=== PATIENT | male | born 1950 | race Caucasian/White ===

== ENCOUNTER 2018-11-01 14:53 | Emergency (ER) | payer BC, OTHER ==
--- NOTE | 2018-11-01 15:01 | EDM.PDOC ---
ED HPI GENERAL MEDICAL PROBLEM - General Stated Complaint: NOSE BLEED Time Seen by Provider: 11/01/18 14:53 Source of Information: Reports: Patient History Limitations: Reports: No Limitations - History of Present Illness INITIAL COMMENTS - FREE TEXT/NARRATIVE: 68 y.o.w.m came by taxi to the ed due to sudden onset of right sided nose bleed. cause was not mechanical. Pt took some antihistamines after which the bleeding started. Pt denies HNT, denies trauma denies any prev nose bleed. Pt is not on Aspirin nor Coumadin. No N/V/D no Dizziness or any other acute medical issues. BP 161/91 RR 18 Pulse ox 98% on RA temp 36.8 Pulse 96 Onset Date: 11/01/18 Onset Time: 14:15 Duration: Minutes:, Getting Worse, Intermittent Location: Reports: Face Severity: Moderate Improves with: Reports: Cold Therapy, Rest Worsens with: Reports: Movement Context: Reports: Sick Contact - Related Data Allergies Allergy/AdvReac Type Severity Reaction Status Date / Time No Known Allergies Allergy Verified 11/01/18 16:16 Home Meds: Home Meds Multivitamin [Daily Multiple Vitamin] 1 tab PO DAILY 12/28/14 [History] Naproxen Sodium [Aleve] 220 mg PO BID PRN 12/28/14 [History] Amoxicillin/Potassium Clav [Augmentin 875-125 Tablet] 1 each PO BID #20 tablet 11/01/18 [Rx] Tamsulosin HCl [Flomax] 0.4 mg PO DAILY 11/01/18 [History] Past Medical History - Past Health History Medical/Surgical History: Denies Medical/Surgical History ED ROS ENT - Review of Systems Review Of Systems: See Below Constitutional: Reports: No Symptoms HEENT: Reports: Nosebleed, Rhinitis Respiratory: Reports: No Symptoms Cardiovascular: Reports: No Symptoms Endocrine: Reports: No Symptoms GI/Abdominal: Reports: No Symptoms : Reports: No Symptoms Musculoskeletal: Reports: No Symptoms Skin: Reports: No Symptoms Neurological: Reports: No Symptoms Psychiatric: Reports: No Symptoms Hematologic/Lymphatic: Reports: No Symptoms Immunologic: Reports: No Symptoms ED EXAM, ENT - Physical Exam Exam: See Below Exam Limited By: No Limitations General Appearance: Alert, WD/WN, Mild Distress Eye Exam: Bilateral Eye: Normal Inspection Ears: Normal External Exam Nose: Active Bleeding Mouth/Throat: Normal Inspection, Normal Gums, Normal Lips, Normal Oropharynx Head: Atraumatic, Normocephalic Neck: Normal Inspection, Supple, Non-Tender, Full Range of Motion Respiratory/Chest: No Respiratory Distress, Lungs Clear, Normal Breath Sounds, No Accessory Muscle Use, Chest Non-Tender Cardiovascular: Normal Peripheral Pulses, Regular Rate, Rhythm, No Edema, No Gallop, No JVD GI/Abdominal: Normal Bowel Sounds, Soft, Non-Tender, No Organomegaly, No Abnormal Bruit, No Mass, Pelvis Stable (Male) Exam: Deferred Rectal (Males) Exam: Deferred Back: Normal Inspection, Full Range of Motion Extremities: Normal Inspection, Normal Range of Motion, Non-Tender, No Pedal Edema, Normal Capillary Refill Neurological: Alert, Oriented, CN II-XII Intact, Normal Cognition, Normal Gait, Normal Reflexes, No Motor/Sensory Deficits Psychiatric: Normal Affect, Normal Mood Skin: Warm, Dry, Intact, Normal Color, No Rash Lymphatic: No Adenopathy ED ENT PROCEDURES - Epistaxis Procedure Recent anticoagulants/antiplatlets: No Uncontrolled HTN: No Recent septal/nasal surgery: No Site of bleeding: Right Nare, Posterior Clearing of clots: Patient Blew Nose Topical Meds: Phenylephrine Ice pack to area: Yes Chemical cautery: Silver Nitrate Topical Electrical cautery: Visible Bleeding, Successful Post cautery: Antibiotic Ointment Complications: No Course - Vital Signs Text/Narrative:: 68 y.o.w.m came by taxi to the ed due to sudden onset of right sided nose bleed. cause was not mechanical. Pt took some antihistamines after which the bleeding started. Pt denies HNT, denies trauma denies any prev nose bleed. Pt is not on Aspirin nor Coumadin. No N/V/D no Dizziness or any other acute medical issues. BP 161/91 RR 18 Pulse ox 98% on RA temp 36.8 Pulse 96 PE: WNWD W M with ant/post nose bleed. Labs: Not indicated Procedure: Please see note above. Impression: Posterior epistaxis, HTN TX: Please see note above, Augmentin,Clonidine Reexam: Improved 100% Please see D/C vital at the nursing notes 4.37 pm Consultation: Dr. Agee, ENT, : If bleeding does not stop , Rapid Rhino is a possibility Plan: D/C with instructions Last Recorded V/S: Last Vital Signs Temp 36.7 C 11/01/18 17:59 Pulse 74 11/01/18 17:59 Resp 18 11/01/18 17:59 BP 169/90 H 11/01/18 17:59 Pulse Ox 99 11/01/18 17:59 - Orders/Labs/Meds Meds: Medications Discontinued Medications Generic Name Dose Route Start Last Admin Trade Name Liza PRN Reason Stop Dose Admin Amoxicillin/Clavulanate Potassium 1 tab 11/01/18 17:00 11/01/18 17:06 Augmentin 875 Mg/125 Mg PO 11/01/18 17:01 1 tab ONETIME ONE Administration Clonidine HCl 0.1 mg 11/01/18 17:12 11/01/18 17:33 Catapres PO 11/01/18 17:13 Not Given ONETIME ONE Clonidine HCl 0.1 mg 11/01/18 17:43 11/01/18 17:46 Catapres PO 11/01/18 17:44 0.1 mg ONETIME ONE Administration Departure - Departure Time of Disposition: 17:01 Disposition: Home, Self-Care 01 Condition: Good Clinical Impression: Epistaxis not due to trauma - Discharge Information Prescriptions: Amoxicillin/Potassium Clav [Augmentin 875-125 Tablet] 1 each PO BID #20 tablet Instructions: Nosebleed, [id number] Referrals: Tammi Hester PA [Primary Care Provider] - Forms: ED Department Discharge Additional Instructions: Please keep your working and sleeping areas moist, take the Abx as recommended, please f/u, come back if your symptoms get worse acutely. Please check your BP daily for next 3 days.
[2018-11-01] MEDS ORDERED: Amoxicillin/Clavulanate K 875-125 MG Tab PO ONE (17:00)
[2018-11-01] MEDS ORDERED: cloNIDine 0.1 MG Tab PO ONE ×2 (17:12→17:43)
[2018-11-01 18:41] VITALS: BP 169/90
== END 2018-11-01 17:59 | disposition home or self-care (01) ==
LOC: FB.ED 14:53
DX: R04.0 Epistaxis (principal); Z79.899 Other long term (current) drug therapy
CPT/HCPCS: 30901; 99283; A9270

== ENCOUNTER 2018-12-05 01:12 | Emergency (ER) | payer BC ==
[2018-12-05 01:55] VITALS: BP 165/97
--- NOTE | 2018-12-05 02:58 | ER ---
DATE SEEN: 12/05/2018 CHIEF COMPLAINT: Head injury. HISTORY OF PRESENT ILLNESS: This is a 68-year-old male who was brought in by ambulance after he fell outside. He slipped on ice while going to the bar, but no loss of consciousness. He had some bleeding from the wound, but is otherwise asymptomatic. PAST MEDICAL HISTORY: BPH. ALLERGIES: Reviewed. MEDICATIONS: Please see Epic. PHYSICAL EXAMINATION: GENERAL: He is a well-nourished male. VITAL SIGNS: His blood pressure is 165/97 and temperature is 98.0. HEAD: Normal size. There is a superficial laceration on the occipital scalp about 3 cm in size, but is intact with no active bleeding. NECK: Stiff, but no tenderness to palpation. EYES: Pupils are equal and reactive to light. NEUROLOGIC: Normal cranial nerves 2 through 12. IMPRESSION: Mild head injury. PLAN: The patient was discharged home. Ibuprofen. Local wound care. Follow up [facility] /[phone] [phone] CHRISTINA/BEATRICE
== END 2018-12-05 01:35 | disposition home or self-care (01) ==
LOC: FB.ED 01:12
DX: S09.90XA Unspecified injury of head, initial encounter (principal); W00.0XXA Fall on same level due to ice and snow, initial encounter
CPT/HCPCS: 99283

== ENCOUNTER 2022-03-21 23:33 | Emergency (ER) | payer OTHER, BC, MEDICARE | END 2022-03-22 00:40 | disposition home or self-care (01) | LOC: FB.ED 23:33 | DX: S01.01XA Laceration without foreign body of scalp, initial encounter (principal); W08.XXXA Fall from other furniture, initial encounter | CPT/HCPCS: 12004; 70450; 72125; 99281; 99283-25 ==

== ENCOUNTER 2022-05-25 01:11 | Emergency (ER) | payer OTHER, BC, MEDICARE ==
[2022-05-25] MEDS: Acetaminophen 500 MG Tab PO ONE (01:59)
[2022-05-25] MEDS: Diphtheria,Pertussis(Acell),Tetanus Vaccine 0.5 ML Syringe IM ONE (02:44)
[2022-05-25 03:35] VITALS: BP 152/86; PULSE 55
== END 2022-05-25 03:30 | disposition home or self-care (01) ==
LOC: FB.ED 01:11
DX: S06.0X0A Concussion without loss of consciousness, initial encounter (principal); S01.01XA Laceration without foreign body of scalp, initial encounter; F10.129 Alcohol abuse with intoxication, unspecified; Z98.1 Arthrodesis status; Z23 Encounter for immunization; W18.30XA Fall on same level, unspecified, initial encounter
CPT/HCPCS: 12004; 70450; 72125; 90471; 90715; 99282; 99284; A9270

== ENCOUNTER 2023-03-25 03:00 | Emergency (ER) | payer OTHER, BC ==
[2023-03-25] MEDS ORDERED: Diphtheria,Pertussis(Acell),Tetanus Vaccine 0.5 ML Syringe IM ONE (03:18)
[2023-03-25 03:29] LABS: BASOPHILS PERCENT AUTO 0.3 % (0.3-3.8); EOSINOPHILS ABSOLUTE AUTO 0.1 x10-3/uL (0.0-0.6); EOSINOPHILS PERCENT AUTO 1.3 % (0.1-6.8); HEMATOCRIT 32.9 % (38.3-50.1); HEMOGLOBIN 11.9 g/dL (12.9-17.7); LYMPHOCYTES ABSOLUTE AUTO 1.1 x10-3/uL (0.5-4.5); LYMPHOCYTES PERCENT AUTO 26.1 % (15.8-45.3); MEAN CORPUSCULAR HEMOGLOBIN 35.9 pg (27.0-33.3); MEAN CORPUSCULAR VOLUME 99.7 fL (80.8-98.7); MONOCYTES ABSOLUTE AUTO 0.5 x10-3/uL (0.0-1.2); MONOCYTES PERCENT AUTO 11.8 % (5.5-15.2); NEUTROPHILS ABSOLUTE AUTO 2.6 x10-3/uL (1.7-6.9); NEUTROPHILS PERCENT AUTO 60.5 % (40.3-71.8); PLATELET COUNT,PLT 299 x10(3)uL (117-477); RED CELL DISTRIBUTION WIDTH 13.1 % (12.4-15.0); WHITE BLOOD CELL COUNT,WBC 4.4 x10-3/uL (3.2-10.1)
[2023-03-25 03:36] LABS: BLOOD UREA NITROGEN,BUN 13 mg/dL (7-18); BUN/CREATININE RATIO 18.6 (9-20); CALCIUM 8.9 mg/dL (8.6-10.2); CARBON DIOXIDE,CO2 26 mmol/L (21-32); CHLORIDE,CL 94 mmol/L (100-110); CREATININE 0.7 mg/dL (0.70-1.30); ESTIMATED GFR 97 mL/min (>60); GLUCOSE RANDOM 119 mg/dL (80-116); POTASSIUM,K 3.5 mmol/L (3.5-5.3); SODIUM,NA 128 mmol/L (135-145)
[2023-03-25] MEDS ORDERED: Morphine 2 MG/ML SYRINGE IM ONE (03:39)
[2023-03-25 03:42] LABS: A/G RATIO 1.1; ALANINE AMINOTRANSFERASE,ALT 25 U/L (12-36); ALBUMIN 3.1 g/dL (3.2-4.6); ALKALINE PHOSPHATASE 91 IU/L (56-112); ASPARTATE AMNIOTRANSFERASE,AST 19 IU/L (5-25); BILIRUBIN TOTAL 0.5 mg/dL (0.1-1.3)
[2023-03-25 03:48] LABS: PROTHROMBIN TIME 10.3 sec (9.0-11.1)
[2023-03-25] MEDS ORDERED: Sodium Chloride 0.9% 1,000 ML IV SCH (04:00)
[2023-03-25 10:13] VITALS: BP 204/108; PULSE 81
== END 2023-03-25 09:51 | disposition home or self-care (01) ==
LOC: FB.ED 03:00
DX: S01.01XA Laceration without foreign body of scalp, initial encounter (principal); W01.198A Fall on same level from slipping, tripping and stumbling with subsequent striking against other object, initial encounter
CPT/HCPCS: 12002; 36415; 70450; 72125; 73030; 80053; 80307; 85025; 85610; 96372; 99284; J2270

== ENCOUNTER 2023-04-26 18:53 | Emergency (ER) | payer OTHER, BC ==
[2023-04-26] MEDS ORDERED: Acetaminophen/HYDROcodone 325-5 MG Tab PO STA (20:02)
[2023-04-26 23:17] VITALS: BP 130/81; PULSE 71
== END 2023-04-26 20:51 | disposition home or self-care (01) ==
LOC: FB.ED 18:53
DX: G89.29 Other chronic pain (principal); M25.511 Pain in right shoulder
CPT/HCPCS: 99283; A9270

== ENCOUNTER 2024-12-04 23:16 | Emergency (ER) | payer BC, OTHER ==
[2024-12-05 01:09] VITALS: BP 148/89; PULSE 75
== END 2024-12-05 01:41 | disposition home or self-care (01) ==
LOC: FB.ED 23:16
DX: S01.01XA Laceration without foreign body of scalp, initial encounter (principal); F10.120 Alcohol abuse with intoxication, uncomplicated; I10 Essential (primary) hypertension; K21.9 Gastro-esophageal reflux disease without esophagitis; Z79.899 Other long term (current) drug therapy; Y90.8 Blood alcohol level of 240 mg/100 ml or more; W01.198A Fall on same level from slipping, tripping and stumbling with subsequent striking against other object, initial encounter
CPT/HCPCS: 12004; 36415; 70450; 80307; 99284

== ENCOUNTER 2025-07-01 21:46 | Emergency (ER) | payer OTHER ==
[2025-07-01 22:26] LABS: BASOPHILS ABSOLUTE AUTO 0.0 x10-3/uL (0.0-0.3); BASOPHILS PERCENT AUTO 0.4 % (0.3-3.8); EOSINOPHILS ABSOLUTE AUTO 0.2 x10-3/uL (0.0-0.6); EOSINOPHILS PERCENT AUTO 4.0 % (0.1-6.8); LYMPHOCYTES ABSOLUTE AUTO 1.9 x10-3/uL (0.5-4.5); LYMPHOCYTES PERCENT AUTO 41.0 % (15.8-45.3); MEAN PLATELET VOLUME 6.7 fL (6.7-11.0); MONOCYTES ABSOLUTE AUTO 0.5 x10-3/uL (0.0-1.2); MONOCYTES PERCENT AUTO 10.1 % (5.5-15.2); NEUTROPHILS ABSOLUTE AUTO 2.0 x10-3/uL (1.7-6.9); NEUTROPHILS PERCENT AUTO 44.5 % (40.3-71.8); PLATELET COUNT,PLT 209 x10(3)uL (117-477); RED CELL DISTRIBUTION WIDTH 13.1 % (12.4-15.0); WHITE BLOOD CELL COUNT,WBC 4.5 x10-3/uL (3.2-10.1)
[2025-07-01 22:30] LABS: BLOOD UREA NITROGEN,BUN 17 mg/dL (7-18); CARBON DIOXIDE,CO2 30 mmol/L (21-32); CHLORIDE,CL 93 mmol/L (100-110); CREATININE 1.2 mg/dL (0.70-1.30); ESTIMATED GFR 63 mL/min (>60); GLUCOSE RANDOM 91 mg/dL (80-116); POTASSIUM,K 4.6 mmol/L (3.5-5.3); SODIUM,NA 124 mmol/L (135-145)
[2025-07-01 22:36] LABS: A/G RATIO 0.9; ALANINE AMINOTRANSFERASE,ALT 28 U/L (12-36); ASPARTATE AMNIOTRANSFERASE,AST 33 IU/L (5-25); BILIRUBIN TOTAL 0.8 mg/dL (0.1-1.3); PROTEIN TOTAL,TP 6.6 g/dL (6.0-8.0)
[2025-07-01 22:38] LABS: RED BLOOD CELL COUNT 3.81 x10(6)uL (3.90-5.90)
[2025-07-01] MEDS ORDERED: Sodium Chloride 0.9% 10 ML Syringe FLUSH PRN (22:41)
[2025-07-01 22:57] VITALS: BP 167/94; PULSE 73
== END 2025-07-01 23:11 | disposition home or self-care (01) ==
LOC: FB.ED 21:46
DX: S01.01XA Laceration without foreign body of scalp, initial encounter (principal); F10.120 Alcohol abuse with intoxication, uncomplicated; J01.40 Acute pansinusitis, unspecified; I10 Essential (primary) hypertension; K21.9 Gastro-esophageal reflux disease without esophagitis; Y90.9 Presence of alcohol in blood, level not specified; Z79.899 Other long term (current) drug therapy; W01.198A Fall on same level from slipping, tripping and stumbling with subsequent striking against other object, initial encounter; Y93.89 Activity, other specified
CPT/HCPCS: 36415; 70450; 80053; 80307; 85025; 99285